=== PATIENT | female | born 1940 | race Caucasian/White ===

== ENCOUNTER 2024-11-13 06:05 | Inpatient (IN) | payer MEDICARE, OTHER ==
[~2024-11-13] VITALS: Ht 172.7 cm; Wt 67.6 kg
[2024-11-13 07:02] LABS: PLATELET COUNT (AUTO) 189 K/uL (150-450); RED BLOOD CELL COUNT(AUTO) 4.38 MIL/uL (4.0-5.2); RED CELL DISTRIBUTION WIDTH 14.0 % (11.5-15.0); WHITE BLOOD COUNT (AUTO) 6.2 K/uL (4.3-11.0)
[2024-11-13 07:10] LABS: CALCIUM, SERUM 8.9 mg/dL (8.5-10.1); CREATININE 1.0 mg/dL (0.6-1.3); SODIUM SERUM 145.0 mmol/L (136-145); UREA NITROGEN, BLOOD 32.0 mg/dL (7-18)
[2024-11-13] MEDS: IV NS 0.9% 1,000 ML BAG IV ONE (07:53)
[2024-11-13 08:24] LABS: APPEARANCE,URINE TURBID (CLEAR); BLOOD, URINE NEGATIVE Ery/uL (NEGATIVE); LEUKOCYTE ESTERASE ,URINE 2+ (NEGATIVE); NITRITE, URINE NEGATIVE (NEGATIVE); UGLUCOSE NEGATIVE (NEGATIVE)
[2024-11-13 08:27] LABS: ADD URINE CULTURE YES; SQUAMOUS EPITHELIAL CELL,UR Rare /HPF (None Seen)
[2024-11-13] MEDS ORDERED: CEPH-570 PO (08:54)
[2024-11-13] MEDS ORDERED: ACETAMINOPHEN 325 MG TABLET PO PRN (09:30)
[2024-11-13] MEDS ORDERED: ONDANSETRON HCL/PF 4 MG/2 ML VIAL IVP PRN (09:30)
[2024-11-13] MEDS ORDERED: Z GUARD REMEDY 4 OZ OINT TP PRN (09:30)
[2024-11-13] MEDS ORDERED: MAGNESIUM HYDROXIDE 30 ML UDC PO PRN (09:30)
[2024-11-13] MEDS ORDERED: LACT-84 PO (09:37)
[2024-11-13] MEDS ORDERED: DONE5TAB34 PO (09:37)
[2024-11-13] MEDS ORDERED: RISP0.2515 PO ×2 (09:37)
[2024-11-13] MEDS: CEFTRIAXONE 1 G in IV D5W 50 ML IV ONE (09:37)
[2024-11-13] MEDS ORDERED: GABA-532 PO (09:37)
[2024-11-13] MEDS ORDERED: MIRT7.5T10 PO (09:37)
[2024-11-13] MEDS ORDERED: ONDA4TAB11 PO (09:37)
[2024-11-13] MEDS: ENOXAPARIN SODIUM 40 MG/0.4 ML DISP.SYRIN SQ SCH (11:24)
[2024-11-13 16:00] VITALS: BP 143/76; TEMP 97.9; O2SAT 98
[2024-11-13] MEDS: MIRTAZAPINE 15 MG TABLET PO SCH (17:59)
[2024-11-13 18:01] VITALS: BP_SYST 101; BP_SYST 113; BP_SYST 125; BP_DIAS 64; BP_DIAS 85
[2024-11-13] MEDS: IV 1/2NS 1000 ML 1,000 ML IV PRN (18:11)
[2024-11-13 20:00] VITALS: BP 167/90; TEMP 97.9; O2SAT 99
[2024-11-13 21:32] VITALS: BP 167/90; TEMP 97.9; O2SAT 99
[2024-11-13] MEDS: hydrALAZINE HCL IV 20 MG VIAL IV PRN (22:07)
[2024-11-13 23:00] VITALS: BP_SYST 124; BP_SYST 135; BP_DIAS 100; BP_DIAS 85; O2SAT 98; O2SAT 99
[2024-11-13 23:10] VITALS: BP 135/85; O2SAT 98
[2024-11-14] MEDS: CEFTRIAXONE 1 G in IV D5W 50 ML IV SCH (08:14)
[2024-11-14] MEDS: PANTOPRAZOLE 40 MG TABLET.DR PO SCH (08:20)
[2024-11-14] MEDS: DONEPEZIL 5 MG TABLET PO SCH (08:32)
[2024-11-14] MEDS: ENSURE CLEAR 237 ML LIQUID (MIX BERRY) PO SCH (08:32)
[2024-11-14] MEDS: GABAPENTIN 100 MG CAPSULE PO SCH (08:32)
[2024-11-14 08:39] VITALS: BP 130/98; TEMP 97.7; O2SAT 96
[2024-11-14 16:03] VITALS: BP 122/100; TEMP 97.6; O2SAT 95
[2024-11-14 20:00] VITALS: BP_SYST 118; BP_SYST 187; BP_DIAS 44; BP_DIAS 81; TEMP 98.2; O2SAT 97; O2SAT 99
[2024-11-14 20:52] LABS: PLATELET COUNT (AUTO) 195 K/uL (150-450); RED BLOOD CELL COUNT(AUTO) 4.58 MIL/uL (4.0-5.2); RED CELL DISTRIBUTION WIDTH 13.4 % (11.5-15.0); WHITE BLOOD COUNT (AUTO) 7.4 K/uL (4.3-11.0)
[2024-11-14 21:11] LABS: CALCIUM, SERUM 9.0 mg/dL (8.5-10.1); CREATININE 0.6 mg/dL (0.6-1.3); PHOSPHORUS 3.1 mg/dL (2.5-4.9); SODIUM SERUM 143.0 mmol/L (136-145); UREA NITROGEN, BLOOD 15.0 mg/dL (7-18)
[2024-11-14] MEDS: QUETIAPINE FUMARATE 25 MG TABLET PO SCH (21:40)
[2024-11-14 22:00] VITALS: BP 118/44; O2SAT 97
[2024-11-14 22:11] LABS: ASPARTATE AMINOTRANSFERASE 21.0 U/L (15-37); TOTAL PROTEIN, SERUM 6.5 g/dL (6.4-8.2)
[2024-11-14] MEDS: POTASSIUM CHLORIDE 20 MEQ TAB.PRT.SR PO ONE (23:09)
[2024-11-15 08:00] VITALS: BP 159/79; TEMP 97.3; O2SAT 98
[2024-11-15] MEDS: QUETIAPINE FUMARATE 25 MG TABLET PO SCH ×2 (08:35→22:17)
[2024-11-15 16:00] VITALS: BP 150/72; TEMP 97.7; O2SAT 98
[2024-11-15 20:00] VITALS: BP 152/76; TEMP 97.7; O2SAT 96
[2024-11-16 07:30] VITALS: BP 161/81; TEMP 97.7; O2SAT 94
[2024-11-16 08:00] VITALS: BP 152/74
[2024-11-16 10:48] LABS: PLATELET COUNT (AUTO) 212 K/uL (150-450); RED BLOOD CELL COUNT(AUTO) 4.44 MIL/uL (4.0-5.2); RED CELL DISTRIBUTION WIDTH 14.0 % (11.5-15.0); WHITE BLOOD COUNT (AUTO) 7.5 K/uL (4.3-11.0)
[2024-11-16 10:58] LABS: CALCIUM, SERUM 8.8 mg/dL (8.5-10.1); CREATININE 0.8 mg/dL (0.6-1.3); PHOSPHORUS 2.9 mg/dL (2.5-4.9); SODIUM SERUM 144.0 mmol/L (136-145); UREA NITROGEN, BLOOD 21.0 mg/dL (7-18)
[2024-11-16] MEDS ORDERED: QUET25TA PO ×3 (12:42)
[2024-11-16] MEDS ORDERED: CEPH500C2 PO (12:42)
[2024-11-16 16:30] VITALS: BP 148/71
== END 2024-11-16 19:14 | DRG 73 ==
LOC: ER 06:10 → MED 10:01
PROVIDERS: ADMIT Nurse Practitioner Family; ATTEND Nurse Practitioner Acute Care
DX: G90.89 Other disorders of autonomic nervous system (principal); G93.41 Metabolic encephalopathy; N39.0 Urinary tract infection, site not specified; E44.1 Mild protein-calorie malnutrition; E86.0 Dehydration; E88.09 Other disorders of plasma-protein metabolism, not elsewhere classified; Z85.3 Personal history of malignant neoplasm of breast; Z90.13 Acquired absence of bilateral breasts and nipples; R53.1 Weakness; Z91.81 History of falling; G30.9 Alzheimer's disease, unspecified; F02.80 Dementia in other diseases classified elsewhere, unspecified severity, without behavioral disturbance, psychotic disturbance, mood disturbance, and anxiety; F29 Unspecified psychosis not due to a substance or known physiological condition; R79.89 Other specified abnormal findings of blood chemistry; Z68.22 Body mass index [BMI] 22.0-22.9, adult
CPT/HCPCS: 36415; 70450-TC; 71045-TC; 72170-TC; 73590-TC; 80048-TC; 80076-TC; 81001; 83735-TC; 84100-TC; 84443-TC; 84484-TC; 85025-TC; 87081-TC; 87086-TC; 93307-TC; 93971-TC; 97110-TC; 97116-TC; 97530-TC; 97535-TC; A4223; A6403; G0378; J0360; J0696; J1650; J3490; J7040; J7060